=== PATIENT | male | born 2000 | race Caucasian/White ===

== ENCOUNTER 2020-01-06 14:12 | Emergency (ER) | payer OTHER, BC, SELFPAY ==
[2020-01-06 14:26] VITALS: BP 130/76; PULSE 88; RESP 16; TEMP 36.8; O2SAT 99
--- NOTE | 2020-01-06 14:51 | ED.GENADULT ---
HPI - General Adult General Chief complaint: Wound/Laceration Stated complaint: L KNEE LAC Time Seen by Provider: 01/06/20 14:51 Source: patient Mode of arrival: ambulatory Limitations: no limitations History of Present Illness HPI narrative: 19-year-old male patient presents to the [facility] with complaints of a laceration right under the left knee that happened about an hour prior to arrival. Patient states he was cutting some wood with a chainsaw and accidentally cut his left knee with a chainsaw. Patient states that actually did not hurt at the time. Patient thinks that his last tetanus was over 5 years ago. Patient states that he did clean with hydrogen peroxide prior to coming in. Related Data Home Medications Medication Instructions Recorded Confirmed citalopram 40 mg PO DAILY 01/06/20 01/06/20 hydroxyzine HCl 50 mg PO HS 01/06/20 01/06/20 Allergies Allergy/AdvReac Type Severity Reaction Status Date / Time No Known Allergies Allergy Verified 01/06/20 14:36 Review of Systems Review of Systems: Narrative: CONSTITUTIONAL: Denies fever, chills, or sweats. EYES: Denies visual changes, redness, or discharge. ENT: Denies rhinorrhea, congestion, sore throat, or otalgia. CARDIOVASCULAR: Denies chest pain, palpitations, or edema. RESPIRATORY: Denies cough or dyspnea. GASTROINTESTINAL: Denies abdominal pain, nausea, vomiting, or diarrhea. GENITOURINARY: Denies dysuria or hematuria. SKIN: Denies rash or itching. Positive laceration under left knee MUSCULOSKELETAL: Denies back pain, joint pain, or myalgia. NEUROLOGIC: Denies headache, numbness, or weakness. PSYCHIATRIC: Denies anxiety or depression. PMFSH Comments At the time of my signature I agree with nursing past medical history, surgical, social, and family history. There is no relevant family history pertinent to the presenting complaint. Exam Narrative: Exam Narrative: GENERAL: Well-appearing, well-nourished, and in no acute distress. HEAD: Normocephalic, atraumatic. EYES: PERRLA and EOMI. ENT: Nares clear, no rhinorrhea or epistaxis. Mucous membranes moist. NECK: Supple. No lymphadenopathy CHEST: Clear to auscultation. No respiratory distress. HEART: Regular rate and rhythm. No murmur heard. Normal peripheral pulses. ABDOMEN: Soft, nontender, nondistended, normal active bowel sounds. EXTREMITIES: Normal range of motion. No edema. SKIN: Warm, dry, no rash. Patient has approximately 4.5 cm laceration that is linear horizontal distal to the left knee. There is no active bleeding at this time. Patient has excellent range of motion to the knee. No obvious foreign bodies are tendon involvement noted at this time. NEURO: No focal deficits. Alert and oriented x3. Course Vital Signs Vital signs: Vital Signs Temperature 36.8 C 01/06/20 14:26 Pulse Rate 88 01/06/20 14:26 Respiratory Rate 16 01/06/20 14:26 Blood Pressure 130/76 01/06/20 14:26 Pulse Oximetry 99 01/06/20 14:26 Temperature 36.8 C 01/06/20 14:26 Pulse Rate 88 01/06/20 14:26 Respiratory Rate 16 01/06/20 14:26 Blood Pressure 130/76 01/06/20 14:26 Pulse Oximetry 99 01/06/20 14:26 Vital signs reviewed. The patient has been informed that they may have pre-hypertension or Hypertension based on a BP reading in the department. I recommend that the patient call the primary care provider listed on their discharge instructions or a physician of their choice this week to arrange follow up for further evaluation of possible pre-hypertension or Hypertension Procedures Laceration Laceration 1: Date: 01/06/20 Time: 15:15 Site: lower extremity (Distal left knee) Side (If applicable): left Size (cm): 4.5 Description: linear Depth: simple, single layer Local Anesthetic: lidocaine 1% Amount of anesthesia used (mL): 8 Pre-repair: irrigated ====== Skin Level ====== Skin layer closed with: vicryl
[2020-01-06] MEDS: TETANUS,DIPHTHERIA,AC PERTUSSIS ADULT 0.5 ML (ADACEL) IM (15:02)
== END 2020-01-06 15:28 | disposition home or self-care (01) ==
PROVIDERS: Emergency Provider Nurse Practitioner Family
DX: S81.012A Laceration without foreign body, left knee, initial encounter (principal); W29.3XXA Contact with powered garden and outdoor hand tools and machinery, initial encounter; Z23 Encounter for immunization
CPT/HCPCS: 12002; 90471; 90715; 99203; G0463